=== PATIENT | female | born 1970 | race Caucasian/White ===

== ENCOUNTER 2016-09-10 09:33 | Day surgery (SDC) | payer MEDICAID ==
[~2016-09-10] VITALS: Ht 157.5 cm; Wt 49.9 kg
[~2016-09-10 09:33] MED LIST: OMEPRAZOLE20 M1 PO; ULTRAM50 MG PO
[2016-09-10 10:28] VITALS: BP 82/55; Ht 157.5 cm; Wt 49.9 kg
[2016-09-10 11:21] LABS: HEMATOCRIT 47.9 % (36.0-48.0); HEMOGLOBIN 15.6 g/dL (12-16); MCH 29.8 pg (26.0-34.0); MCHC 32.6 g/dL (31.0-37.0); MCV 91.4 fL (80.0-100.0); MEAN PLATELET VOLUME 10.1 fL (7.4-10.4); RBC 5.24 10x6/uL (4.00-5.40); RDW 13.7 % (11.5-14.5); WBC 9.2 10x3/uL (4.8-10.8)
[2016-09-10 11:30] LABS: HCG SERUM NEGATIVE (NEGATIVE)
--- NOTE | 2016-09-10 13:25 | NUR ---
1320 ATTEMPTED TO NOTIFY FAMILY (SANG) OF DELAY. NO ANSWER IN PATIENT ROOM.
--- NOTE | 2016-09-10 14:10 | NUR ---
FINGERNAILS VERY DIRTY AND UNKEPT
[2016-09-10] MEDS ORDERED: HYDROCODONE-APA1 TAB PO (14:16)
--- NOTE | 2016-09-14 10:12 | OP ---
PATIENT NAME: JOCE AMBRIZ MEDICAL RECORD: [id number] :68 LOCATION:D.OPS ADMISSION DATE: SURGEON: LAYNE BURLESON MD DATE OF OPERATION: 09/10/2016 PREOPERATIVE DIAGNOSIS: Carpal tunnel syndrome of the right upper extremity. POSTOPERATIVE DIAGNOSIS: Carpal tunnel syndrome of the right upper extremity. PROCEDURE: Carpal tunnel release. SURGEON: Layne Burleson MD. ANESTHESIA: General. INTRAOPERATIVE COMPLICATIONS: None. SUMMARY OF PATHOLOGIC FINDINGS: The patient had a very tight transverse carpal ligament consistent with the preoperative diagnosis as well as EMGs and NCVS. OPERATIVE SUMMARY IN DETAIL: After obtaining the appropriate preoperative orthopedic surgery consent as well as anesthetic consultation, evaluation and clearance, the patient was brought to the operating room and placed on the operating table in supine position. After adequate general TIVA anesthesia was administered, the right upper extremity and hand were prepped and draped in routine sterile fashion. The arm was elevated and exsanguinated, tourniquet inflated to 250 mmHg. The area of the incision was locally infiltrated with 0.25% Marcaine with epinephrine. An incision was made in line with the fourth metacarpal into the mid palmar crease, taken down to the level of distal aspect of the transverse carpal ligament, which was gently incised. [place] elevator was placed into the carpal canal to protect the median nerve. The entire transverse carpal ligament was then incised to the proximal wrist crease. Having completed this, the wound was irrigated and closed with 4-0 Prolene in routine interrupted fashion. Sterile dressings were applied. Tourniquet was deflated. The patient was awakened and taken to recovery in stable condition. All final needle and sponge counts were correct. TRANSINT:[id number] Voice Confirmation ID: [id number] DOCUMENT ID: [id number] LAYNE BURLESON MD at 1012 CC: [id number] DICTATION DATE: 09/10/16 1418 [employer]ENIOR SALES EXECUTIVE: 09/10/162007 [facility] 09/10/16 [id number] [place] [address]
== END 2016-09-10 15:35 | disposition home or self-care (01) ==
LOC: D.OPS 09:33 → D.PAN 12:45 → D.OPS 15:30 → D.PAN 15:30 → D.OPS 15:35
PROVIDERS: Anesthesiology
DX: G56.01 Carpal tunnel syndrome, right upper limb (principal)

== ENCOUNTER 2016-11-20 14:27 | Emergency (ER) | payer MEDICAID ==
[2016-09-10 10:28] VITALS: BMI 20.1
[~2016-11-20 14:27] MED LIST changes: +HYDROCODONE-APA1 TAB PO
[2016-11-20 15:23] LABS: APPEARANCE HAZY (CLEAR); BILIRUBIN NEGATIVE (NEGATIVE); COLOR YELLOW (YELLOW); GLUCOSE NEGATIVE (NEGATIVE); KETONE MODERATE mg/dL (NEGATIVE); LEUKOCYTE ESTERASE 1+ (NEGATIVE); NITRITE NEGATIVE (NEGATIVE); PROTEIN NEGATIVE (NEGATIVE); SPECIFIC GRAVITY 1.025 (1.005-1.020); UROBILINOGEN NORMAL (NORMAL)
[2016-11-20 15:24] LABS: BACTERIA MODERATE /hpf (NONE SEEN); MUCUS >1+ /lpf (NONE SEEN); RED CELLS - URINE 0-5 /hpf (0-5)
[2016-11-20 15:36] LABS: BASOPHILS 0.3 % (0-2); HEMATOCRIT 46.8 % (36.0-48.0); HEMOGLOBIN 15.9 g/dL (12-16); IMMATURE GRANULOCYTES 0.1 % (0-5); LYMPHOCYTES 25.1 % (15-50); MCH 30.2 pg (26.0-34.0); MCV 88.8 fL (80.0-100.0); MEAN PLATELET VOLUME 9.7 fL (7.4-10.4); MONOCYTES 10.9 % (2-11); NEUTROPHILS 62.6 % (40-80); PLATELET COUNT 255 10x3/uL (130-400); RBC 5.27 10x6/uL (4.00-5.40); RDW 12.7 % (11.5-14.5)
== END 2016-11-20 17:31 | disposition home or self-care (01) ==
LOC: D.ER 14:27
PROVIDERS: Emergency Medicine
DX: R10.9 Unspecified abdominal pain (principal); N10 Acute pyelonephritis; R51 Headache; R11.2 Nausea with vomiting, unspecified